=== PATIENT | male | born 1950 | race Caucasian/White ===

== ENCOUNTER 2019-11-15 10:42 | Observation (INO) ==
[2019-11-15] MEDS ORDERED: ASPIRIN PO ONE ×2 (10:44→10:45)
[2019-11-15] MEDS ORDERED: NITROGLYCERIN SL ONE (11:04)
[2019-11-15] MEDS ORDERED: ASPIRIN ONE (11:06)
--- NOTE | 2019-11-15 11:18 | EKG Report ---
Test Performed on : 11/15/2019 10:49:06 AM Test Reason : cp Blood Pressure : / mmHG Vent. Rate : 097 BPM Atrial Rate : 097 BPM P-R Int : 216 ms QRS Dur : 092 ms QT Int : 360 ms P-R-T Axes : 052 040 032 degrees QTc Int : 457 ms Sinus rhythm. with 1st degree AV block. Possible Left atrial enlargement Cannot rule out Inferior infarct , age undetermined Abnormal ECG When compared with ECG of 23-JAN-2018 18:43, ST no longer elevated in Inferior leads ST no longer depressed in Anterior leads Unconfirmed Result
[2019-11-15 11:21] LABS: INR 0.89; PROTIME 12.5 Seconds (11.0-16.0); PTT 27.6 Seconds (22.3-41.8)
[2019-11-15 11:28] LABS: AGAP 15; ALBUMIN 4.4 g/dL (3.5-5.0); ALKALINE PHOSPHATASE 49 U/L (32-122); BUN 15 mg/dL (8-22); CALCIUM 9.3 mg/dL (8.8-10.2); CHLORIDE 94 mmol/L (98-107); COSMO 277; CREATININE 1.1 mg/dL (0.7-1.2); ESTIMATED GFR > 60; GLUCOSE 248 mg/dL (70-104); GOT 17 U/L (10-34); GPT 14 U/L (10-44); POTASSIUM 4.4 mmol/L (3.5-5.1); SODIUM 134 mmol/L (136-145); TCO2 25 mmol/L (25-35); TOTAL PROTEIN 7.2 g/dL (6.3-8.3)
--- NOTE | 2019-11-15 11:33 | Diag Imaging Result Doc PS360 ---
EXAM: CHEST-2 VIEWS HISTORY: cp TECHNIQUE: Two views COMPARISON: 05/17/2019 FINDINGS: The lungs are well expanded. The heart is not enlarged. The vessels are not distended. There are no infiltrates. No pleural effusions. Moderate sized hiatal hernia. IMPRESSION: Hiatal hernia Electronically signed by Cm Valero 11/15/2019 11:31 AM
[2019-11-15 11:37] LABS: BASO% 1.6 % (0.0-0.8); EOS# 0.14 X1000 (0.0-0.7); EOS% 2.2 % (0.0-10.0); HEMATOCRIT 43.6 % (42.0-52.0); HEMOGLOBIN 14.7 g/dL (14.0-18.0); IMM GRAN# 0.02 X1000 (0.0-0.04); IMM GRAN% 0.3 % (0.0-0.5); LYMPH% 26.7 % (20.5-51.1); MCH 30.3 PG (27-31); MCHC 33.7 g/dL (33-37); MCV 89.9 FL (81-99); MONO# 0.64 X1000 (0.11-0.59); MPV 9.7 FL (7.4-10.4); NEUT# 3.77 X1000 (1.4-6.5); NEUT% 59.2 % (42.2-75.2); PLT 262 X1000 (130-400); RBC 4.85 XMIL (4.7-6.1); RDW 12.9 % (11.5-14.5); WBC 6.37 X1000 (4.8-10.8)
--- NOTE | 2019-11-15 12:10 | PROVIDER DOCUMENTATION ---
This chart was entered by Quin Lees Scribe, acting as scribe for Garett Keys MD. HPI-Chest Pain - General Chief Complaint: Chest Pain Stated Complaint: CHEST PAIN Time Seen by Provider: 11/15/19 10:48 Source: patient Allergies/Adverse Reactions: Patient Allergies Allergy/AdvReac Type Severity Reaction Status Date / Time No Known Allergies Allergy Verified 07/20/16 14:18 Home Medications: Home Medication List Medication Instructions Recorded Confirmed Last Taken Type Aspirin [Aspir-Low] 81 mg PO DAILY 02/10/18 10/02/19 Unknown History Glyburide/Metformin [Glucovance 1 tab PO BID 02/10/18 10/02/19 Unknown History 5/500 mg Tablet] Hydrochlorothiazide 25 mg PO DAILY 10/02/19 10/02/19 Unknown History Irbesartan 300 mg PO HS 10/02/19 10/02/19 Unknown History - History of Present Illness-CP Nature of Presenting Problem: 69 yowm presents to the ed from cardiac rehab. pt sts he has [facility] and has x3 cardiac stents. pt has been in cardiac rehab for [address] francis request. pt sts woke this am and had 10 minutes of chest pain but it resolved prior to rehab appointment. pt once in rehab was on the treadmill when pain returned with dizziness and sob. pt on exam has improved and is nontoxic in appearance Location: reports: other (left anterior) Chest Pain Radiation: reports: no radiation Quality of Pain: reports: aching Severity in ED: moderate Onset/Duration: this morning Timing: gone now, intermittent Context/Activities at Onset: reports: light activity Modifying Factors: improves with: nothing Associated Symptoms: reports: dizziness, shortness of breath. denies: abdominal pain, back pain, diaphoresis, fever/chills, nausea, vomiting Nitro Today/Relief: no nitro taken today Aspirin Treatment Today: 81 mg x 1 (taken at home), 81 mg x 3 (given in ed) Prior Chest Pain/Cardiac Workup: reports: cardiac cath, heart attack Similar Symptoms Previously?: Yes Recently Seen Here or By Another Healthcare Provider: Yes (has seen dr francis motor bike mechanic ) Review of Systems - Adult - REVIEW OF SYSTEMS - ADULT Constitutional: denies: chills, fever Eyes: reports: no symptoms reported Ears, Nose, Mouth & Throat: reports: no symptoms reported Cardiovascular: reports: see HPI, chest pain. denies: palpitations, syncope Respiratory: reports: see HPI, shortness of breath. denies: cough, wheezing Gastrointestinal: denies: diarrhea, nausea, vomiting Genitourinary: reports: no symptoms reported Musculoskeletal: reports: no symptoms reported Integumentary: reports: no symptoms reported Neurological: reports: see HPI, dizziness/vertigo. denies: headache/migraines, syncope Psychiatric: reports: no symptoms reported Endocrine: reports: no symptoms reported Hematologic/Lymphatic: reports: no symptoms reported Allergic/Immunologic: reports: no symptoms reported All Other Systems: Reviewed and Negative Past History - Adult - PAST MEDICAL HISTORY-ADULT Review of Records: reports: Old Records Reviewed, Nursing Assessment Review, Medications Reviewed, Social history reviewed & non-contributory. Major Childhood Illnesses: reports: denies history Cardiovascular: reports: CAD, hyperlipidemia, [facility] Respiratory: reports: cancer (esophagus) Gastrointestinal: reports: denies history Genitourinary: reports: prostate cancer Musculoskeletal: reports: denies history Hand Dominance: Right Handed Neurological: reports: denies history Psychiatric: reports: denies history Endocrine/Immune: reports: Diabetes Diabetes Type: Type 2 Other Conditions: reports: denies history - PRIOR SURGERIES/PROCEDURES Surgical/Procedure History: reports: tonsillectomy, other (prostate) - IMMUNIZATION STATUS Childhood Immunizations: See Nurse Assessment Flu Vaccine: See Nurse Assessment - FAMILY HISTORY Family History: reviewed, not pertinent - SOCIAL HISTORY Smoking: quit greater than 1 year Substance Use: alcohol Alcohol Use Frequency: twice a week Number of drinks per typical drinking period:: 3-4 drinks Living Situation: alone Physical Exam-General - PHYSICAL EXAM-ADULT Initial Vital Signs Reviewed: Yes - CONSTITUTIONAL General Appearance: appears well, alert, no apparent distress (pt sts all pain has resolved still has mild dizziness and sob) - EYES Eyes: PERRL/EOMI, pink conjunctivae - HEAD, EARS, NOSE, MOUTH & THROAT HENMT: moist mucous membranes - NECK Neck: non-tender, full range of motion, supple, normal inspection - RESPIRATORY Respiratory: chest non-tender, lungs clear, normal breath sounds - CARDIOVASCULAR Cardiovascular: normal peripheral pulses, regular rate, rhythm - CHEST (BREASTS) Chest/Breast: deferred - GASTROINTESTINAL (ABDOMEN) Abdominal Exam: normal bowel sounds, non tender, soft - GENITOURINARY Male Genitalia: deferred Rectal Exam: deferred Hemoccult Exam: deferred - LYMPHATIC Lymphatic: no adenopathy - MUSCULOSKELETAL Back Exam: no CVA tenderness, no vertebral tenderness Extremity: normal range of motion, non-tender, normal gait, normal inspection - SKIN Integumentary: normal color, normal turgor, warm/dry - NEUROLOGIC Neurologic: grossly normal - PSYCHIATRIC Psych/Mental Status: normal mood/affect, normal thought content, normal thought process, oriented x 3 - HEART Score HEART Score: History: Slightly Suspicious HEART Score: ECG: Non-Specific Repolarization Disturbance/LBBB/PM HEART Score: Age: > or = 65 Years HEART Score: Risk Factors for Atherosclerotic Disease: 1 or 2 Risk Factors HEART Score: Troponin: < or = Normal Limit Total HEART Score:: 4 Progress - PLAN OF CARE/RESULTS Progress/Plan/Lab Results: Vital Signs - 8 hr 11/15/19 10:56 11/15/19 12:00 Temperature 97.7 F Pulse Rate 96 H 96 H Respiratory Rate 15 18 Blood Pressure 162/82 126/71 O2 Sat by Pulse Oximetry 96 95 Laboratory Results - last 24 hr 11/15/19 11/15/19 11/15/19 10:53 10:53 10:53 WBC RBC Hgb Hct MCV MCH MCHC RDW Std Deviation Plt Count MPV Immature Gran % (Auto) Neut % (Auto) Lymph % (Auto) [place] % (Auto) Eos % (Auto) Baso % (Auto) Immature Gran # (Auto) Neut # (Auto) Lymph # (Auto) [place] # (Auto) Eos # (Auto) Baso # (Auto) PT INR PTT (Actin FS) D-Dimer, Quantitative Sodium 134 L Potassium 4.4 Chloride 94 L Carbon Dioxide 25 Anion Gap 15 BUN 15 Creatinine 1.1 Estimated GFR/1.73 m2 > 60 BUN/Creatinine Ratio 14 Glucose 248 H Calculated Osmolality 277 Calcium 9.3 Total Bilirubin 0.50 AST 17 ALT 14 Alkaline Phosphatase 49 Creatine Kinase 106 Troponin T High Sens 18 Nah-[id number]-[id number] Pept Total Protein 7.2 Albumin 4.4 Globulin 3.0 Albumin/Globulin Ratio 2.0 11/15/19 11/15/19 11/15/19 10:53 10:53 10:53 WBC 6.37 RBC 4.85 Hgb 14.7 Hct 43.6 MCV 89.9 MCH 30.3 MCHC 33.7 RDW Std Deviation 12.9 Plt Count 262 MPV 9.7 Immature Gran % (Auto) 0.3 Neut % (Auto) 59.2 Lymph % (Auto) 26.7 [place] % (Auto) 10.0 H Eos % (Auto) 2.2 Baso % (Auto) 1.6 H Immature Gran # (Auto) 0.02 Neut # (Auto) 3.77 Lymph # (Auto) 1.70 [place] # (Auto) 0.64 H Eos # (Auto) 0.14 Baso # (Auto) 0.10 PT 12.5 INR 0.89 PTT (Actin FS) 27.6 D-Dimer, Quantitative < 0.27 Sodium Potassium Chloride Carbon Dioxide Anion Gap BUN Creatinine Estimated GFR/1.73 m2 BUN/Creatinine Ratio Glucose Calculated Osmolality Calcium Total Bilirubin AST ALT Alkaline Phosphatase Creatine Kinase Troponin T High Sens [id number] Pept Total Protein Albumin Globulin Albumin/Globulin Ratio 11/15/19 10:56 WBC RBC Hgb Hct MCV MCH MCHC RDW Std Deviation Plt Count MPV Immature Gran % (Auto) Neut % (Auto) Lymph % (Auto) [place] % (Auto) Eos % (Auto) Baso % (Auto) Immature Gran # (Auto) Neut # (Auto) Lymph # (Auto) [place] # (Auto) Eos # (Auto) Baso # (Auto) PT INR PTT (Actin FS) D-Dimer, Quantitative Sodium Potassium Chloride Carbon Dioxide Anion Gap BUN Creatinine Estimated GFR/1.73 m2 BUN/Creatinine Ratio Glucose Calculated Osmolality Calcium Total Bilirubin AST ALT Alkaline Phosphatase Creatine Kinase Troponin T High Sens [id number] Pept 162 Total Protein Albumin Globulin Albumin/Globulin Ratio Orders Category Date Time Status Cardiac Monitoring DIRECTED Care 11/15/19 10:45 Active Cardiac Monitoring DIRECTED Care 11/15/19 10:45 Active Oxygen Therapy- ED Nursing DIRECTED Care 11/15/19 10:45 Active Saline Loc NOW Care 11/15/19 10:45 Active CHEST-2 VIEWS [RAD] Stat Exams 11/15/19 10:45 Completed CBC WITH ELECTRONIC DIFF [HEME] Stat Lab 11/15/19 10:53 Completed CK PROFILE [SP CHEM] Stat Lab 11/15/19 10:53 Completed COMPREHENSIVE METABOLIC PANEL [CHEM] Stat Lab 11/15/19 10:53 Completed D-DIMER [COAG] Stat Lab 11/15/19 10:53 Completed PRO B-NATRIURETIC PEPTIDE Stat Lab 11/15/19 10:56 Completed PROTIME WITH INR [COAG] Stat Lab 11/15/19 10:53 Completed PTT [COAG] Stat Lab 11/15/19 10:53 Completed TROPONIN T HIGH SENSITIVITY Stat Lab 11/15/19 10:53 Completed Aspirin Med 11/15/19 11:06 Discontinued 243 mg .ROUTE .STK-MED ONE Aspirin Med 11/15/19 10:44 Discontinued 325 mg PO NOW ONE Aspirin Med 11/15/19 10:45 Discontinued 325 mg PO NOW ONE Nitroglycerin Sl [Nitroglycerin] Med 11/15/19 11:04 Discontinued 0.4 mg SL NOW ONE CP/SOB/Palp >45 yrs of Age Stat Oth 11/15/19 10:44 Ordered EKG [EKG] Stat Ther 11/15/19 10:45 Draft Result Diagrams: 11/15/19 10:53 11/15/19 10:53 - EKG 1 Time of EKG reading by physician:: 10:49 EKG Read and Signed by:: Garett Keys EKG Interpretation (*Must complete 3 of following elements*): Abnormal Rate: 97 Rhythm: sinus rhythm with 1st degree AV block [place]: normal QRS: other (possible left atrial enlargement) MI Interval: normal ST Wave: normal Prior EKG Comparison: changes noted (acute [facility] noted on old EKG 01/23/2018) Comments: cannot rule out inferior infarct, age undetrmined - XRAY 1 XRAY: Bilateral XRAY Study: Chest Impression: See EMR Report (EXAM: CHEST-2 VIEWS HISTORY: cp TECHNIQUE: Two views COMPARISON: 05/17/2019 FINDINGS: The lungs are well expanded. The heart is not enlarged. The vessels are not distended. There are no infiltrates. No pleural effusions. Moderate sized hiatal hernia. IMPRESSION: Hiatal hernia Electronically signed by Cm Valero 11/15/2019 11:31 AM 11/15/19 1131 Interpreting Physician: Cm Valero MD Dictated Date/Time: 11/15/19 1130 cc: Garett Keys MD; Kristina Alba MD) - CONSULTS/PCP/HOSPITALIST Notification #1 *Consult/PCP/Hospitalist*: DR PORRAS Time Discussed: 12:09 Consult Disposition: Admit Departure - Departure Date of Disposition Decision: 11/15/19 Time of Disposition Decision: 12:07 DIAGNOSIS: SOB (shortness of breath) Chest pain Qualifiers: Chest pain type: unspecified Qualified Code(s): R07.9 - Chest pain, unspecified Disposition: ADMITTED INPATIENT 09 Certified Medical Emergency: Emergent Condition: Stable Additional Instructions: ED Follow Up Instructions: You have been treated by a care provider in the Emergency Department. These instructions are being provided to you so you can have an understanding of how to care for yourself upon discharge. Upon discharge from the Emergency Department, you are responsible for making arrangements for follow-up care by a physician of your choice. Take all prescribed medications as directed. Return to the Emergency Department immediately for any new or worsening symptoms. You may call the Physician Referral phone number at [phone] to obtain a list of Physicians who are taking new patients. Referrals and Follow-Ups: Kristina Alba MD [Primary Care Provider] - - Critical Care Note This patient required my direct & personal management of CC.: No Attestation - Physician/ RONALDO Attestation Patient care was provided by Advanced Practice Provider:: No The physician spent face to face time with patient:: Yes Advanced Practice Provider documentation review:: Supervising physician onsite and consulted in the evaluation and care of this patient. The physician did have a face to face encounter with the patient. This chart was documented by the indicated scribe, (Quin Lees Scribe) and accurately reflects the services I performed and decisions made by me, Garett Keys MD, as attested by the provider's signature.
[2019-11-15] MEDS ORDERED: TYLENOL PO PRN (15:07)
[2019-11-15] MEDS ORDERED: NITROGLYCERIN SL PRN (15:07)
[2019-11-15] MEDS ORDERED: ZOFRAN IV PRN (15:07)
[2019-11-15] MEDS: HUMALOG (PARKWAY) SUBQ SCH ×2 (17:23→20:15)
--- NOTE | 2019-11-15 19:36 | HISTORY AND PHYSICAL ---
PRIMARY CARE PROVIDER: Dr. Alba. CARDIOLOGISTS: Dr. Perla. CHIEF COMPLAINT: Chest pain. HISTORY OF PRESENT ILLNESS: Mr. Dasilva is a 69-year-old male who carries a past medical history of coronary artery disease status post re-stenting with a drug-eluting stent for in-stent stenosis in the circumflex, drug-eluting stent to the LAD in 2017, hypertension, hyperlipidemia, type 2 diabetes, prostate cancer status post radical prostatectomy, alcohol use, subdural hematoma, I believe back in January 2019, status post a fall. He reports this morning around 8 a.m. he had about 10 minutes of chest pain that he could only describe as "hurt" and it gave him left forearm numbness and ring finger numbness. He could not remember if he had any associated symptoms with it, besides the numbness, but he reports that he did have some shortness of breath on and off all day today. After the pain subsided, he cooked him what sounded like a rather large breakfast and then he went to cardiac rehab. They initially checked his blood pressure and blood sugar, put him on the treadmill to warm up. He became dizzy and had to sit down. They checked his blood pressure, blood sugar and heart rate. They were all high. He does not remember at that time if he had chest pain. He only remembers feeling dizzy, so he was referred to the ED for further evaluation. Had 2 sets of cardiac enzymes that were negative. He was hyperglycemic. We will trend 1 more set of echocardiogram 1 more set of cardiac enzymes and do a stress test in the a.m.. PAST MEDICAL HISTORY: Coronary artery disease with a left heart catheterization back in January 2019 that showed a end-stent stenosis of the circumflex that was treated with a drug-eluting stent and a drug-eluting stent to the LAD on January 2018, hypertension, hyperlipidemia, diabetes mellitus type 2, subdural hematoma on 05/19/2019 secondary to a fall. Prostate cancer with a radical prostatectomy. PAST SURGICAL HISTORY: Stenting x2, radical prostatectomy, hiatal hernia repair. FAMILY HISTORY: Reviewed, noncontributory. SOCIAL HISTORY: He is single. No tobacco. No illicit drugs. No vaping. He does drink 4 to 7 beers daily. REVIEW OF SYSTEMS: Twelve-point review of systems completely negative except for those mentioned in HPI. PHYSICAL EXAMINATION: VITAL SIGNS: Temperature is 97.6 degrees, heart rate 71, respirations 20, blood pressure 158/67, O2 is 97% on room air. GENERAL: Mr. Dasilva is a talkative, 69-year-old male who is lying in the bed, finishing up his echocardiogram. HEENT: Atraumatic, normocephalic. PERRL. NECK: Supple. Trachea midline. CARDIOVASCULAR: S1, S2 appreciated. No murmurs, gallops, or rubs noted. RESPIRATORY: Lung sounds clear bilaterally. GI: Soft, nontender, nondistended. Positive bowel sounds 4 quadrants lower. EXTREMITIES: Negative for edema. Bilateral pedal pulses are palpable. No signs of clubbing or cyanosis. NEUROLOGIC: No focal deficits noted. SKIN: Warm and dry. LABORATORY DATA: White count 6, hemoglobin and hematocrit 14 and 43, platelet count is 262,000. Sodium 134, potassium 4.4, BUN 15, creatinine 1.1 blood glucose 248. Two sets of cardiac enzymes have been negative at 18 15. Chest x-ray: Hiatal hernia. EKG: Sinus rhythm with a first-degree AV block, possible left atrial enlargement. ASSESSMENT AND PLAN: 1. Chest pain in a patient with known coronary artery disease status post stenting x2 with end stent restenosis back in January 2019 to the circumflex and 2 drug-eluting stents, 1 in 2017, 1 in 2019. Two sets of cardiac enzymes have been negative. We will make him NPO after midnight. He has already had his echocardiogram. Set him up for a stress test in the a.m., nitroglycerin p.r.n., supplemental O2. Continue his low-dose aspirin. 2. Diabetes mellitus type 2. We will place him on sliding scale with pattern blood sugars. 3. Hypertension. Continue his Avapro. 4. Further recommendation to follow physician evaluation, laboratory and diagnostic data. Dictated by KO Kuhn for Marc Fiore MD cc: MD Gustavo Zendejas Dr.
[2019-11-15] MEDS ORDERED: AVAPRO PO SCH (21:00)
--- NOTE | 2019-11-15 21:42 | HISTORY AND PHYSICAL ---
HISTORY AND PHYSICAL ADDENDUM: The patient seen and examined by myself. Full note dictated and discussed with nurse practitioner. Patient has a significant history of cardiac disease. He was actually in cardiac rehab at which time he felt dizzy, lightheaded, and therefore he was brought to the ER. He has stopped smoking. We are going to admit him to the hospital to rule out MO, follow his blood sugars. Further orders as needed. cc: Marc Fiore MD
[2019-11-16] MEDS: NS 1,000 ML IV SCH ×2 (01:18→16:55)
[2019-11-16 05:22] LABS: HEMATOCRIT 39.6 % (42.0-52.0); HEMOGLOBIN 13.2 g/dL (14.0-18.0); MCH 30.1 PG (27-31); MCHC 33.3 g/dL (33-37); MCV 90.4 FL (81-99); MPV 9.6 FL (7.4-10.4); RBC 4.38 XMIL (4.7-6.1); RDW 12.8 % (11.5-14.5); WBC 5.09 X1000 (4.8-10.8)
[2019-11-16 05:46] LABS: HEMOGLOBIN A1C 9.3 % (4.8-6.0)
[2019-11-16 05:54] LABS: AGAP 14; ALBUMIN 3.7 g/dL (3.5-5.0); ALKALINE PHOSPHATASE 41 U/L (32-122); BUN 14 mg/dL (8-22); CALCIUM 8.9 mg/dL (8.8-10.2); CHLORIDE 98 mmol/L (98-107); COSMO 279; CREATININE 0.8 mg/dL (0.7-1.2); ESTIMATED GFR > 60; GLUCOSE 179 mg/dL (70-104); GOT 14 U/L (10-34); GPT 11 U/L (10-44); MAGNESIUM 1.4 mg/dL (1.5-2.7); POTASSIUM 3.9 mmol/L (3.5-5.1); SODIUM 137 mmol/L (136-145); TCO2 25 mmol/L (25-35); TOTAL PROTEIN 6.1 g/dL (6.3-8.3)
[2019-11-16] MEDS: PRILOSEC PO SCH ×2 (06:35→09:19)
[2019-11-16] MEDS: HUMALOG (PARKWAY) SUBQ SCH ×3 (06:35→16:41)
--- NOTE | 2019-11-16 07:34 | Diag Imaging Result Doc PS360 ---
EXAM: CHEST-PORTABLE - 11/16/2019 HISTORY: Chest Pain TECHNIQUE: Portable chest COMPARISON: 11/15/2019 FINDINGS: Heart size is normal. There is mild scarring at the left apex. The lungs otherwise appear clear. There is no pleural effusion or pneumothorax identified. IMPRESSION: No evidence of acute disease. Electronically signed by Onel Gasca 11/16/2019 7:32 AM
[2019-11-16] MEDS ORDERED: ASPIRIN EC PO SCH (09:00)
--- NOTE | 2019-11-16 09:12 | ECHO REPORT ---
ORDER DATE: 11/15/2019 MEASUREMENTS: 1. Aortic root 3.9. 2. Left atrium 4.7. SUMMARY: 1. Fair quality study. 2. Aortic valve is trileaflet and opens normally on 2-dimensional images. Peak gradient across aortic valve is less than 10 mmHg. Mitral, tricuspid, and pulmonic valves are without evidence of structural abnormality with trace mitral regurgitation. Aortic root is borderline enlarged. 3. Normal left ventricular dimensions suggested. Estimated left ejection fraction approximately 50% to 55%. There is hypokinesis of the basal inferior wall. Left atrium is mildly enlarged on 2-dimensional images. Right atrium and right ventricle are normal in size with normal right ventricular systolic function. 4. No pericardial effusion. 5. Inferior vena cava not well demonstrated. CONCLUSIONS: 1. No significant valvular abnormality evident. 2. Estimated left ejection fraction approximately 50% to 55% with basal inferior hypokinesis. 3. Mild left atrial enlargement. 4. Borderline aortic root enlargement. cc: Jb Leslie MD
[2019-11-16] MEDS ORDERED: LEXISCAN ONE (14:00)
[2019-11-16 14:46] VITALS: BP 140/89
--- NOTE | 2019-11-16 14:49 | Diag Imaging Result Document ---
PROCEDURE NAME: MYOCARDIAL PERF SCAN, STR/REST - 11/16/2019 INDICATION FOR THE STUDY: Chest pain. PROCEDURES PERFORMED: 1. Lexiscan stress (results dictated separately by performing physician). 2. One-day stress/rest myocardial perfusion imaging (rest dose 12.5 mCi, stress dose approximately 36 mCi). FINDINGS: LEXISCAN STRESS RESULTS: 1. Dictated separately. 2. No evidence of abnormal extracardiac uptake. 3. TID ratio 0.86. PERFUSION IMAGING RESULTS: 1. Demonstrates a very small size, mild intensity, fixed defect located in the inferolateral base. This could represent artifact from the mitral annulus. Overall, there are no ischemic changes identified on this study. This would suggest a low risk study. 2. There is a normal ejection fraction of 71%. The end-diastolic volume is 64 and end-systolic volume is 18. Normal wall motion. cc: Sarthak Giles MD
--- NOTE | 2019-11-16 15:38 | EKG Report ---
Test Performed on : 11/16/2019 2:37:45 PM Test Reason : CP Blood Pressure : / mmHG Vent. Rate : 060 BPM Atrial Rate : 060 BPM P-R Int : 224 ms QRS Dur : 096 ms QT Int : 426 ms P-R-T Axes : 056 061 048 degrees QTc Int : 426 ms Sinus rhythm. with 1st degree AV block. with premature atrial complexes. in a pattern of bigeminy. Otherwise normal ECG When compared with ECG of 15-NOV-2019 10:49, (Unconfirmed) premature atrial complexes. are now present Vent. rate has decreased BY 37 BPM Nonspecific T wave abnormality has replaced inverted T waves in Inferior leads Unconfirmed Result
[2019-11-16] MEDS ORDERED: DIABETA PO SCH (17:00)
[2019-11-16] MEDS ORDERED: GLUCOVANCE 5-500 MG TABLET PO SCH (17:00)
[2019-11-16] MEDS ORDERED: GLUCOPHAGE PO SCH (17:00)
--- NOTE | 2019-11-17 04:37 | DISCHARGE SUMMARY ---
ADMISSION DATE: 11/15/2019 DISCHARGE DATE: 11/16/2019 DISCHARGE DIAGNOSES: 1. Chest pain, resolved. 2. Known coronary artery disease. 3. Diabetes with poor home control with an A1c at 9.3. 4. Hypertension. CONSULTATIONS: None. PROCEDURES: Cardiolite GXT. BRIEF HOSPITAL COURSE: The patient is a 69-year-old male who presented to the hospital after being at cardiac rehab. He did have chest pain. Patient was ruled out for an MO. He did have a cardiac stress test that also was negative. Currently, he is awake, alert. States that he is feeling tremendously better. He denies any fevers, chills. Did have a cardiac stress test that was negative. We discussed with patient diet control as well as adjusting his medication. Notes that he has not been taking his medications on a regular basis. He does have diabetes with an A1c of 9.3. DISPOSITION: Patient will be discharged home. He will follow up outpatient with treatment facility of choice. Discussed the importance of controlling his blood sugar. TIME SPENT: Greater than 30 minutes was spent in total care. cc: Marc Fiore MD
== END 2019-11-16 18:58 | disposition home or self-care (01) ==
LOC: P.MEDSURG 10:42 → P.ED 10:42
PROVIDERS: ATTEND Family Medicine